=== PATIENT | female | born 1990 | race Caucasian/White ===

== ENCOUNTER 2018-02-05 09:08 | Emergency (ER) | payer OTHER ==
--- NOTE | 2018-02-05 09:33 | ED ---
General Adult HPI - General Chief complaint: Extremity Injury, Lower Stated complaint: fall, foot injury Time Seen by Provider: 02/05/18 09:20 Source: patient, RN notes reviewed Mode of arrival: ambulatory Limitations: no limitations - History of Present Illness Initial comments: Patient 28-year-old female presenting to the emergency room today with a chief complaint of an injury to the right ankle and foot that occurred yesterday. She states that she tripped on a curb causing it to roll and felt a pop. She states that she was trying to ice yesterday but was running around doing a lot of parents. Patient states pain is worse today with swelling. She states worse with ambulation and bearing weight. Patient denies any other injury or complaint. Patient denies any recent fever, chills, shortness of breath, chest pain, back pain, abdominal pain, nausea or vomiting, numbness or tingling, headaches or visual changes, or any other complaints. - Related Data Home Medications Medication Instructions Recorded Confirmed Ibuprofen [Motrin Ib] 600 mg PO Q6H PRN 02/05/18 02/05/18 Pregabalin [Lyrica] 150 mg PO BID 02/05/18 02/05/18 Previous Rx's Medication Instructions Recorded Ibuprofen [Motrin] 600 mg PO Q6HR PRN #40 day 02/05/18 Allergies Allergy/AdvReac Type Severity Reaction Status Date / Time No Known Allergies Allergy Verified 02/05/18 09:33 Review of Systems ROS Statement: Those systems with pertinent positive or pertinent negative responses have been documented in the HPI. ROS Other: All systems not noted in ROS Statement are negative. Past Medical History Past Medical History: Osteoarthritis (OA) Additional Past Medical History / Comment(s): right ovarian cyst History of Any Multi-Drug Resistant Organisms: None Reported Past Surgical History: Orthopedic Surgery, Tonsillectomy Additional Past Surgical History / Comment(s): wisdom teeth, LT ROTATOR CUFF REPAIR, INSERTED AND REMOVAL IUD, COLONOSCOPY Past Anesthesia/Blood Transfusion Reactions: No Reported Reaction Past Psychological History: Anxiety Smoking Status: Former smoker Past Alcohol Use History: None Reported Past Drug Use History: None Reported - Past Family History Mother Family Medical History: No Reported History General Exam - General Exam Comments Initial Comments: General: The patient is awake and alert, in no distress, and does not appear acutely ill. Neck: The neck is supple, there is no tenderness or JVD. Musculoskeletal: Patient does have moderate swelling over the right ankle and top the right foot. Patient shows limited range of motion with plantar and dorsiflexion due to pain. No tenderness to the right knee. No tenderness down into the digits the right foot. Patient does have tenderness over the first and second metatarsals. Locally tender over the lateral malleolus and in the lateral ligamentous areas. Sensations are intact. Pupils pulses 2+. Neurological: A&O x 3. CN II-XII intact, There are no obvious motor or sensory deficits. Coordination appears grossly intact. Speech is normal. Skin: Skin is warm and dry and no rashes or lesions are noted. Psychiatric: Normal mood and affect. Limitations: no limitations Course Vital Signs 02/05/18 09:10 Temperature 97.5 F L Pulse Rate 102 H Respiratory 18 Rate Blood Pressure 143/93 O2 Sat by Pulse 98 Oximetry Medical Decision Making - Medical Decision Making X-ray reviewed and negative for any acute fracture dislocation. Results were discussed with the patient. Patient will given Aircast splint here in the emergency room she is advised follow-up in 7-10 days for repeat x-rays if symptoms persist. Patient advised continue anti-inflammatories. We'll give Toradol shot prior to discharge. Disposition Clinical Impression: Ankle sprain Disposition: HOME SELF-CARE Condition: Good Instructions: Ankle Sprain (ED) Additional Instructions: Please continue to ice elevate the affected area at least 4 times a day for 20 minutes at a time. Please use Tylenol/ibuprofen for pain. Please follow-up in 7-10 days for repeat x-rays if symptoms persist. Please return to emergency room for any other concerns. Prescriptions: Ibuprofen [Motrin] 600 mg PO Q6HR PRN #40 day PRN Reason: Pain Is patient prescribed a controlled substance at d/c from ED?: No Referrals: Christopher Jorge MD [Primary Care Provider] - 1-2 days Time of Disposition: 10:13
--- NOTE | 2018-02-05 09:52 | XR ---
EXAMINATION TYPE: XR ankle complete RT DATE OF EXAM: 02/05/2018 COMPARISON: NONE HISTORY: Pain FINDINGS: Three views of the ankle demonstrate the ankle mortise to be intact and symmetric. The joint spaces are preserved. The osseous structures are intact. Soft tissue swelling laterally. IMPRESSION: 1. No definite acute fracture or dislocation, if symptoms persist follow-up study in 7 to 10 days wou ld be suggested.
--- NOTE | 2018-02-05 09:54 | XR ---
EXAMINATION TYPE: XR foot complete RT DATE OF EXAM: 02/05/2018 COMPARISON: NONE HISTORY: Pain TECHNIQUE: Three views are submitted. FINDINGS: The osseous structures are intact. There is no acute fracture or dislocation. Joint spaces are p reserved. Hammertoe deformities noted. IMPRESSION: 1. No acute fracture or dislocation. If symptoms persist, follow-up exam in 7 to 10 days could be ob tained.
[2018-02-05] MEDS ORDERED: KETOROLAC 60 MG/2 ML VIAL IM STA (10:10)
[2018-02-05 10:41] VITALS: BP 131/70; PULSE 98; RESP 16; TEMP 97.8
== END 2018-02-05 10:39 | disposition home or self-care (01) ==
LOC: EC 09:08
DX: S93.401A Sprain of unspecified ligament of right ankle, initial encounter (principal); F41.9 Anxiety disorder, unspecified; Z87.891 Personal history of nicotine dependence; Z79.899 Other long term (current) drug therapy; W22.8XXA Striking against or struck by other objects, initial encounter
CPT/HCPCS: 73610; 73630; 99283; 96372; J1885

== ENCOUNTER 2018-03-31 04:28 | Emergency (ER) | payer OTHER ==
--- NOTE | 2018-03-31 05:36 | ED ---
Wound/Laceration HPI - General Chief Complaint: Wound/Laceration Stated Complaint: Foot laceration Time Seen by Provider: 03/31/18 05:15 Source: patient Mode of arrival: ambulatory Limitations: no limitations - History of Present Illness Initial Comments: Is a 28-year-old female who presents emergency department for a leg laceration. The patient reportedly slammed a glass door which shattered and a piece of glass cut her leg. The patient denies any major pain. She states that her last tetanus shot was within the last 5 years. She denies any other injuries. - Related Data Home Medications Medication Instructions Recorded Confirmed Ibuprofen [Motrin Ib] 600 mg PO Q6H PRN 02/05/18 02/05/18 Pregabalin [Lyrica] 150 mg PO BID 02/05/18 02/05/18 Previous Rx's Medication Instructions Recorded Ibuprofen [Motrin] 600 mg PO Q6HR PRN #40 day 02/05/18 Allergies Allergy/AdvReac Type Severity Reaction Status Date / Time No Known Allergies Allergy Verified 03/31/18 04:47 Review of Systems ROS Statement: Those systems with pertinent positive or pertinent negative responses have been documented in the HPI. ROS Other: All systems not noted in ROS Statement are negative. Past Medical History Past Medical History: Osteoarthritis (OA) Additional Past Medical History / Comment(s): right ovarian cyst History of Any Multi-Drug Resistant Organisms: None Reported Past Surgical History: Orthopedic Surgery, Tonsillectomy Additional Past Surgical History / Comment(s): wisdom teeth, LT ROTATOR CUFF REPAIR, INSERTED AND REMOVAL IUD, COLONOSCOPY Past Anesthesia/Blood Transfusion Reactions: No Reported Reaction Past Psychological History: Anxiety Smoking Status: Former smoker Past Alcohol Use History: None Reported Past Drug Use History: None Reported - Past Family History Mother Family Medical History: No Reported History General Exam - General Exam Comments Initial Comments: Constitutional: Awake alert Appears comfortable Head: Normocephalic atraumatic Eyes: no conjunctival injection No scleral icterus EOMI Neck: No JVD Supple Heart: Regular rate rhythm normal S1-S2 no murmurs Lungs: Clear to auscultation bilaterally No wheezing No rales Abdomen: Soft nondistended nontender Extremities: Non edematous DP pulses intact Radial pulses intact, there is a laceration to the medial aspect of the left calf anteriorly. It is approximately 4-5 cm in length and appears to be just through the skin layer and down to the subcutaneous fat. Bleeding is well controlled Neuro: A&Ox3 No focal neurologic deficits Psych: Appropriate mood and affect Limitations: no limitations Course Vital Signs 03/31/18 04:43 Temperature 97.4 F L Pulse Rate 110 H Respiratory 20 Rate Blood Pressure 141/87 O2 Sat by Pulse 94 L Oximetry Procedures - Laceration Laceration #1 Consent Obtained: verbal consent Indication: laceration Site: lower extremity Size (cm): 4 Description: linear Depth: simple, single layer Anesthetic Used: lidocaine 1% Anesthesia Technique: local infiltration Amount (mls): 4 Pre-repair: wound explored, irrigated extensively, deep structures intact Type of Sutures: nylon Size of Sutures: 4-0 Number of Sutures: 11 Technique: simple, interrupted Patient Tolerated Procedure: no complications Medical Decision Making - Medical Decision Making Is a 28-year-old female who presents emergency report for a laceration on her left leg. Laceration was explored and irrigated except extensively. No foreign bodies or glass were found. The laceration was repaired. Please see the procedure note for details. The patient was discharged home. Instructed to using tobacco ointment twice a day and monitor for signs of infection. She needs to have the sutures removed in 10-14 days. This was also discussed with her fianc at bedside. All questions were answered. Disposition Clinical Impression: Laceration Disposition: HOME SELF-CARE Condition: Stable Instructions: Laceration (ED) Additional Instructions: Sutures need to come out in 10=14 days. Use antibiotic ointment on it twice a day. Return for redness, increased pain, or pus drainage Is patient prescribed a controlled substance at d/c from ED?: No Referrals: Christopher Jorge MD [Primary Care Provider] - 1-2 days
[2018-03-31] MEDS ORDERED: LIDOCAINE 1% INJ 10MG/ML (20 ML MDV) SQ ONE (06:39)
[2018-03-31 08:17] VITALS: BP 109/79; PULSE 60; RESP 16; TEMP 98.6
== END 2018-03-31 07:35 | disposition home or self-care (01) ==
LOC: EC 04:28
DX: S81.812A Laceration without foreign body, left lower leg, initial encounter (principal); Z79.899 Other long term (current) drug therapy; Z87.891 Personal history of nicotine dependence; W25.XXXA Contact with sharp glass, initial encounter
CPT/HCPCS: 99282; 12002; J2001

== ENCOUNTER 2018-05-24 06:52 | Emergency (ER) | payer OTHER ==
[2018-05-24 07:06] VITALS: RESP 18; TEMP 97.9
--- NOTE | 2018-05-24 07:18 | ED ---
General Adult HPI <Abdullahi Armenta - Last Filed: 05/24/18 10:14> - General Source: patient, RN notes reviewed Mode of arrival: ambulatory Limitations: no limitations <Drew Pierce - Last Filed: 05/24/18 11:03> - General Chief complaint: Extremity Injury, Upper Stated complaint: Shoulder Pain Time Seen by Provider: 05/24/18 07:07 - History of Present Illness Initial comments: 28-year-old female with chronic shoulder dislocations presents to the emergency department for a chief complaint of right shoulder dislocation x 2 hours. Patient states she slept with her arms above her head which causes her shoulder to dislocate. Patient states this has happened many times before. She is aware she needs surgery and is trying to schedule this. Patient has already had reconstructive surgery on the left shoulder for the same problem. Patient has no other complaints at this time including shortness of breath, chest pain, abdominal pain, nausea or vomiting, headache, or visual changes. (Drew Pierce) - Related Data Home Medications Medication Instructions Recorded Confirmed Ibuprofen [Motrin Ib] 600 mg PO Q6H PRN 02/05/18 02/05/18 Pregabalin [Lyrica] 150 mg PO BID 02/05/18 02/05/18 Previous Rx's Medication Instructions Recorded Ibuprofen [Motrin] 600 mg PO Q6HR PRN #40 day 02/05/18 Allergies Allergy/AdvReac Type Severity Reaction Status Date / Time No Known Allergies Allergy Verified 03/31/18 04:47 Review of Systems ROS Other: All systems not noted in ROS Statement are negative. <Abdullahi Armenta - Last Filed: 05/24/18 10:14> ROS Other: All systems not noted in ROS Statement are negative. <Drew Pierce - Last Filed: 05/24/18 11:03> ROS Statement: Those systems with pertinent positive or pertinent negative responses have been documented in the HPI. Past Medical History Past Medical History: Osteoarthritis (OA) Additional Past Medical History / Comment(s): right ovarian cyst, prior dislocations to right shoulder x13 History of Any Multi-Drug Resistant Organisms: None Reported Past Surgical History: Orthopedic Surgery, Tonsillectomy Additional Past Surgical History / Comment(s): wisdom teeth, LT ROTATOR CUFF REPAIR, INSERTED AND REMOVAL IUD, COLONOSCOPY Past Anesthesia/Blood Transfusion Reactions: No Reported Reaction Past Psychological History: Anxiety Smoking Status: Former smoker Past Alcohol Use History: None Reported Past Drug Use History: None Reported - Past Family History Mother Family Medical History: No Reported History <Drew Pierce - Last Filed: 05/24/18 11:03> General Exam Limitations: no limitations General appearance: anxious Head exam: Present: atraumatic, normocephalic, normal inspection Eye exam: Present: normal appearance, PERRL, EOMI. Absent: scleral icterus, conjunctival injection, periorbital swelling ENT exam: Present: normal exam, mucous membranes moist Neck exam: Present: normal inspection. Absent: tenderness, meningismus, lymphadenopathy Respiratory exam: Present: normal lung sounds bilaterally. Absent: respiratory distress, wheezes, rales, rhonchi, stridor Cardiovascular Exam: Present: regular rate, normal rhythm, normal heart sounds. Absent: systolic murmur, diastolic murmur, rubs, gallop, clicks Extremities exam: Present: normal capillary refill (Capillary refill less than 2 seconds and radial pulse 2+ in the right upper extremity), other (deformity noted). Absent: full ROM (Unable to move right shoulder) <Drew Pierce - Last Filed: 05/24/18 11:03> Course <Abdullahi Armenta - Last Filed: 05/24/18 10:14> <Drew Pierce - Last Filed: 05/24/18 11:03> Vital Signs 05/24/18 05/24/18 05/24/18 07:02 09:30 09:45 Temperature 97.9 F Pulse Rate 74 71 61 Respiratory 18 18 18 Rate Blood Pressure 131/86 141/96 136/100 O2 Sat by Pulse 100 99 100 Oximetry 05/24/18 05/24/18 05/24/18 10:00 10:15 10:21 Temperature Pulse Rate 63 84 75 Respiratory 18 18 18 Rate Blood Pressure 128/79 114/81 114/81 O2 Sat by Pulse 100 100 99 Oximetry - Reevaluation(s) Reevaluation #1: 05/24/18 11:02 Did attempt to reduce shoulder without sedation initially after morphine administered. This is unsuccessful. It then took some time to have respiratory come down due to having multiple other cases to finish first. Reduction was started as soon as possible. (Drew Pierce) Procedures - Orthopedic Joint Reduction Joint #1 Consent Obtained: verbal consent Side: right Joint Reduction Location: shoulder Analgesia: procedural sedation Shoulder Technique Used (if applicable): traction/counter-traction Post Reduction X-Ray Obtained: Yes Post Reduction X-Ray Results: reduced Splint Applied: Yes Patient Tolerated Procedure: well - Procedural Sedation Procedural Sedation Start Time: 10:05 Procedural Sedation Stop Time: 10:35 Indications: fracture/dislocation reduction ASA Class: I Preparation: pulverizer feeder applied, pulse oximeter, capnometry used, supplemental O2 applied IV Etomidate Dose (mgs): 10 Complications: none Patient Tolerated Procedure: well <Abdullahi Armenta - Last Filed: 05/24/18 10:14> Medical Decision Making <Abdullahi Armenta - Last Filed: 05/24/18 10:14> <Drew Pierce - Last Filed: 05/24/18 11:03> - Medical Decision Making 28-year-old female presents for right shoulder dislocation. This has been recurrent. Initial x-ray showed an anterior shoulder dislocation. Reduction was performed with sedation by Dr. Armenta. No complications. X-ray postreduction shows a successful reduction of the right shoulder. Neurovascular intact. Immobilizer applied. Patient will follow-up with orthopedics. On discharge patient is alert and oriented, drinking water. She is ready to go home. Will return here if she has any worsening symptoms. ( Drew Pierce) Disposition <Abdullahi Armenta - Last Filed: 05/24/18 10:14> Is patient prescribed a controlled substance at d/c from ED?: No Time of Disposition: 11:01 <Drew Pierce - Last Filed: 05/24/18 11:03> Clinical Impression: Shoulder dislocation Disposition: HOME SELF-CARE Condition: Good Instructions (If sedation given, give patient instructions): Shoulder Dislocation (ED) Additional Instructions: Please follow up with primary care in 1-2 days. Follow-up with orthopedics for possible surgery. Please return here to the emergency department if you have any worsening symptoms. Referrals: Christopher Jorge MD [Primary Care Provider] - 1-2 days Chet Starr DO [Medical Doctor] - 1-2 days
--- NOTE | 2018-05-24 07:24 | XR ---
EXAMINATION TYPE: XR shoulder limited RT DATE OF EXAM: 05/24/2018 COMPARISON: 12/07/2013 HISTORY: Pain TECHNIQUE: Shoulder examined in 2 views FINDINGS: Humeral head is anterior and inferior to the adenoid. The acromio-clavicular junction is normal. No acute fractures are evident. IMPRESSION: 1. Anterior humeral head dislocation.
[2018-05-24] MEDS ORDERED: MORPHINE SULFATE 4 MG/ML SYRINGE IM STA (07:36)
[2018-05-24] MEDS ORDERED: ETOMIDATE 2 MG/ML 10 ML VIAL IVP STA (08:05)
[2018-05-24] MEDS ORDERED: SODIUM CHLORIDE 0.9% 500 ML 500 ML IV ONE (10:26)
--- NOTE | 2018-05-24 10:35 | XR ---
EXAMINATION TYPE: XR shoulder limited RT DATE OF EXAM: 05/24/2018 COMPARISON: 05/24/2018 earlier exam HISTORY: Dislocation TECHNIQUE: Single AP view right shoulder FINDINGS: There is been reduction of the shoulder dislocation. Humeral head appears to articulate wit h the glenoid in this projection. Acromioclavicular junction is intact. No interval fractures are lynda ntified. IMPRESSION: 1. Reduction of previous dislocation right shoulder
[2018-05-24 11:03] VITALS: BP 117/71; PULSE 67
== END 2018-05-24 11:12 | disposition home or self-care (01) ==
LOC: EC 06:52
DX: S43.014A Anterior dislocation of right humerus, initial encounter (principal); Z79.899 Other long term (current) drug therapy; Z87.891 Personal history of nicotine dependence; X50.9XXA Other and unspecified overexertion or strenuous movements or postures, initial encounter
CPT/HCPCS: 99283; 23650; 99152; 99153; 96360; 96372; 73020; J2270

== ENCOUNTER 2019-01-14 12:24 | Emergency (ER) | payer OTHER ==
[2019-01-14] MEDS ORDERED: IBUPROFEN IV 600 MG in SODIUM CHLORIDE 0.9% 250 ML IV STA (13:20)
[2019-01-14] MEDS ORDERED: ACETAMINOPHEN TAB 500 MG TAB PO STA (13:20)
[2019-01-14 14:08] LABS: Basophils % (A) 0 %; Eosinophils % (A) 0 %; HCT 39.4 % (34.0-46.0); HGB 12.8 gm/dL (11.4-16.0); Lymphocytes # (A) 0.5 k/uL (1.0-4.8); Lymphocytes % (A) 7 %; MCH 29.3 pg (25.0-35.0); MCHC 32.6 g/dL (31.0-37.0); MCV 89.9 fL (80.0-100.0); Mean Platelet Volume 7.5; Monocytes # (A) 0.3 k/uL (0-1.0); Monocytes % (A) 3 %; Neutrophils # (A) 7.2 k/uL (1.3-7.7); Neutrophils % (A) 89 %; Platelet Count 182 k/uL (150-450); RBC 4.38 m/uL (3.80-5.40); RDW 13.2 % (11.5-15.5); WBC 8.1 k/uL (3.8-10.6)
[2019-01-14 14:19] LABS: ALT 21 U/L (9-52); AST 18 U/L (14-36); African American GFR (CKD) >90 (>60 ml/min/1.73 sqM); Albumin 4.2 g/dL (3.5-5.0); Alkaline Phosphatase 53 U/L (38-126); Anion Gap 10 mmol/L; Blood Urea Nitrogen 10 mg/dL (7-17); Calcium 9.3 mg/dL (8.4-10.2); Carbon Dioxide 22 mmol/L (22-30); Chloride 103 mmol/L (98-107); Glucose 91 mg/dL (74-99); INR 0.9 (<1.2); Partial Thromboplastin Time 25.7 sec (22.0-30.0); Potassium 4.1 mmol/L (3.5-5.1); Prothrombin Time 9.8 sec (9.0-12.0); Sodium 135 mmol/L (137-145); Total Bilirubin 1.1 mg/dL (0.2-1.3); Total Protein 7.2 g/dL (6.3-8.2)
[2019-01-14 14:23] LABS: Appearance,Urine Clear (Clear); Bacteria,Urine Rare /hpf; Bilirubin,Urine Negative (Negative); Blood,Urine Moderate (Negative); Color,Urine Yellow; Glucose,Urine (UA) Negative (Negative); Ketones,Urine Negative (Negative); Leukocyte Esterase,Urine Small (Negative); Mucus,Urine Occasional /hpf; Nitrite,Urine Negative (Negative); PH, Urine 6.5 (5.0-8.0); Protein,Urine Trace (Negative); RBC,Urine 9 /hpf (0-5); Specific Gravity,Urine 1.026 (1.001-1.035); Squamous Epithelial Cell,Urine 7 /hpf (0-4); Urobilinogen,Urine <2.0 mg/dL (<2.0); WBC,Urine 2 /hpf (0-5)
--- NOTE | 2019-01-14 14:23 | ED ---
Fever HPI - General Chief Complaint: Fever Stated Complaint: Fever, Chest pain,SOB Time Seen by Provider: 01/14/19 12:53 Source: patient, RN notes reviewed, old records reviewed Mode of arrival: ambulatory Limitations: no limitations - History of Present Illness Initial Comments: Patient is a 21-year-old female, presents emergency department today with chest pain, shortness of breath, and left lower abdominal pain, fevers 4 days after elective D&C procedure. Patient is a female. Patient states that she accidentally became , and was 5 weeks in gestation and had an elective surgical . Patient reports that this was done in [facility]. Patient reports that she's had some lower abdominal pain but denies any severe vaginal bleeding or noted discharge. She denies any history of blood clots. - Related Data Home Medications Medication Instructions Recorded Confirmed Ibuprofen [Motrin Ib] 600 mg PO Q6H PRN 02/05/18 02/05/18 Pregabalin [Lyrica] 150 mg PO BID 02/05/18 02/05/18 Previous Rx's Medication Instructions Recorded Ibuprofen [Motrin] 600 mg PO Q6HR PRN #40 day 02/05/18 Acetaminophen-Codeine 300-30mg 1 tab PO Q4H PRN 3 Days #18 tablet 01/14/19 [Tylenol w/codeine #3] Doxycycline [Vibramycin] 100 mg PO BID #28 capsule 01/14/19 metroNIDAZOLE [Flagyl] 500 mg PO BID #28 tab 01/14/19 Allergies Allergy/AdvReac Type Severity Reaction Status Date / Time No Known Allergies Allergy Verified 03/31/18 04:47 Review of Systems ROS Statement: Those systems with pertinent positive or pertinent negative responses have been documented in the HPI. ROS Other: All systems not noted in ROS Statement are negative. Past Medical History Past Medical History: Osteoarthritis (OA) Additional Past Medical History / Comment(s): right ovarian cyst, prior dislocations to right shoulder x13 History of Any Multi-Drug Resistant Organisms: None Reported Past Surgical History: Orthopedic Surgery, Tonsillectomy Additional Past Surgical History / Comment(s): wisdom teeth, LT ROTATOR CUFF REPAIR, INSERTED AND REMOVAL IUD, COLONOSCOPY, "surgical " Past Anesthesia/Blood Transfusion Reactions: No Reported Reaction Past Psychological History: Anxiety Smoking Status: Former smoker Past Alcohol Use History: None Reported Past Drug Use History: None Reported - Past Family History Mother Family Medical History: No Reported History General Exam - General Exam Comments Initial Comments: 21-year-old female. Alert and oriented. No significant distress. Limitations: no limitations General appearance: alert, in no apparent distress Head exam: Present: atraumatic, normocephalic, normal inspection Eye exam: Present: normal appearance, PERRL, EOMI. Absent: scleral icterus, conjunctival injection, periorbital swelling ENT exam: Present: normal exam, mucous membranes moist Neck exam: Present: normal inspection. Absent: tenderness, meningismus, lymphadenopathy Respiratory exam: Present: normal lung sounds bilaterally. Absent: respiratory distress, wheezes, rales, rhonchi, stridor Cardiovascular Exam: Present: regular rate, normal rhythm, normal heart sounds. Absent: systolic murmur, diastolic murmur, rubs, gallop, clicks GI/Abdominal exam: Present: soft, tenderness (Suprapubic tenderness), normal bowel sounds. Absent: distended, guarding, rebound, rigid External exam: Present: normal external exam Speculum exam: Present: normal speculum exam, vaginal discharge, vaginal bleeding (Left adnexal tenderness.) By manual exam: Present: normal by manual exam, cervical motion tenderness, adnexal mass, uterine enlargement. Absent: adnexal tenderness Extremities exam: Present: normal inspection, full ROM, normal capillary refill. Absent: tenderness, pedal edema, joint swelling, calf tenderness Back exam: Present: normal inspection Neurological exam: Present: alert, oriented X3, CN II-XII intact Psychiatric exam: Present: normal affect, normal mood Course Vital Signs 01/14/19 01/14/19 01/14/19 12:39 14:30 14:59 Temperature 100 F H Pulse Rate 121 H 94 90 Respiratory 18 16 18 Rate Blood Pressure 144/93 139/86 131/87 O2 Sat by Pulse 100 98 100 Oximetry 01/14/19 01/14/19 15:46 16:47 Temperature 100.6 F H Pulse Rate 86 78 Respiratory 18 16 Rate Blood Pressure 127/74 113/68 O2 Sat by Pulse 99 100 Oximetry Medical Decision Making - Medical Decision Making This is a 29-year-old female, 4 days post elective with D&C. She presents today for left-sided abdominal pain, fevers, did complain of some cough and shortness of breath. This time Patient had full evaluation for a CT injured chest for PE which was negative. CT on pelvis shows bilateral ovarian cysts recommended further evaluation with ultrasound. Ultrasound was completed and shows some cysts but no signs of abscess or intake and endometrium or other inflammatory process. Blood work was otherwise unremarkable. Patient's urinalysis did show mild infection. On pelvic exam she did have bleeding, but in some left adnexal tenderness. I discussed this with Dr. Cline and discussed putting the Patient on antibiotics for concern for possible PID related to her D&C. Patient was offered admission and states she preferred to go home at this time. I did discuss we can discharge her with a short course of antibiotics and pain medicine and she needs a prompt follow-up with her [employer] in the morning. Patient is agreeable to this. Discussed strict return parameters as well. - Lab Data Result diagrams: 01/14/19 13:35 01/14/19 13:35 Lab Results 01/14/19 01/14/19 01/14/19 Range/Units 13:35 13:35 13:35 WBC 8.1 (3.8-10.6) k/uL RBC 4.38 (3.80-5.40) m/uL Hgb 12.8 (11.4-16.0) gm/dL Hct 39.4 (34.0-46.0) % MCV 89.9 (80.0-100.0) fL MCH 29.3 (25.0-35.0) pg MCHC 32.6 (31.0-37.0) g/dL RDW 13.2 (11.5-15.5) % Plt Count 182 (150-450) k/uL Neutrophils % 89 % Lymphocytes % 7 % Monocytes % 3 % Eosinophils % 0 % Basophils % 0 % Neutrophils # 7.2 (1.3-7.7) k/uL Lymphocytes # 0.5 L (1.0-4.8) k/uL Monocytes # 0.3 (0-1.0) k/uL Eosinophils # 0.0 (0-0.7) k/uL Basophils # 0.0 (0-0.2) k/uL PT (9.0-12.0) sec INR (<1.2) APTT (22.0-30.0) sec Sodium 135 L (137-145) mmol/L Potassium 4.1 (3.5-5.1) mmol/L Chloride 103 (98-107) mmol/L Carbon Dioxide 22 (22-30) mmol/L Anion Gap 10 mmol/L BUN 10 (7-17) mg/dL Creatinine 0.73 (0.52-1.04) mg/dL Est GFR (CKD-EPI)AfAm >90 (>60 ml/min/1.73 sqM) Est GFR (CKD-EPI)NonAf >90 (>60 ml/min/1.73 sqM) Glucose 91 (74-99) mg/dL Plasma Lactic Acid Oscar (0.7-2.0) mmol/L Calcium 9.3 (8.4-10.2) mg/dL Total Bilirubin 1.1 (0.2-1.3) mg/dL AST 18 (14-36) U/L ALT 21 (9-52) U/L Alkaline Phosphatase 53 (38-126) U/L Troponin I (0.000-0.034) ng/mL NT-Pro-B Natriuret Pep pg/mL Total Protein 7.2 (6.3-8.2) g/dL Albumin 4.2 (3.5-5.0) g/dL Urine Color Urine Appearance (Clear) Urine pH (5.0-8.0) Ur Specific [place] (1.001-1.035) Urine Protein (Negative) Urine Glucose (UA) (Negative) Urine Ketones (Negative) Urine Blood (Negative) Urine Nitrite (Negative) Urine Bilirubin (Negative) Urine Urobilinogen (<2.0) mg/dL Ur Leukocyte Esterase (Negative) Urine RBC (0-5) /hpf Urine WBC (0-5) /hpf Ur Squamous Epith Cells (0-4) /hpf Urine Bacteria (None) /hpf Urine Mucus (None) /hpf Influenza Type A RNA Not Detected (Not Detectd) Influenza Type B (PCR) Not Detected (Not Detectd) Trichomonas Ag (Rapid) (Negative) Blood Type Blood Type Recheck Bld Type Recheck Status Antibody Screen Spec Expiration Date 01/14/19 01/14/19 01/14/19 Range/Units 13:35 13:35 13:35 WBC (3.8-10.6) k/uL RBC (3.80-5.40) m/uL Hgb (11.4-16.0) gm/dL Hct (34.0-46.0) % MCV (80.0-100.0) fL MCH (25.0-35.0) pg MCHC (31.0-37.0) g/dL RDW (11.5-15.5) % Plt Count (150-450) k/uL Neutrophils % % Lymphocytes % % Monocytes % % Eosinophils % % Basophils % % Neutrophils # (1.3-7.7) k/uL Lymphocytes # (1.0-4.8) k/uL Monocytes # (0-1.0) k/uL Eosinophils # (0-0.7) k/uL Basophils # (0-0.2) k/uL PT 9.8 (9.0-12.0) sec INR 0.9 (<1.2) APTT 25.7 (22.0-30.0) sec Sodium (137-145) mmol/L Potassium (3.5-5.1) mmol/L Chloride (98-107) mmol/L Carbon Dioxide (22-30) mmol/L Anion Gap mmol/L BUN (7-17) mg/dL Creatinine (0.52-1.04) mg/dL Est GFR (CKD-EPI)AfAm (>60 ml/min/1.73 sqM) Est GFR (CKD-EPI)NonAf (>60 ml/min/1.73 sqM) Glucose (74-99) mg/dL Plasma Lactic Acid Oscar 1.0 (0.7-2.0) mmol/L Calcium (8.4-10.2) mg/dL Total Bilirubin (0.2-1.3) mg/dL AST (14-36) U/L ALT (9-52) U/L Alkaline Phosphatase (38-126) U/L Troponin I (0.000-0.034) ng/mL NT-Pro-B Natriuret Pep pg/mL Total Protein (6.3-8.2) g/dL Albumin (3.5-5.0) g/dL Urine Color Yellow Urine Appearance Clear (Clear) Urine pH 6.5 (5.0-8.0) Ur Specific [place] 1.026 (1.001-1.035) Urine Protein Trace H (Negative) Urine Glucose (UA) Negative (Negative) Urine Ketones Negative (Negative) Urine Blood Moderate H (Negative) Urine Nitrite Negative (Negative) Urine Bilirubin Negative (Negative) Urine Urobilinogen <2.0 (<2.0) mg/dL Ur Leukocyte Esterase Small H (Negative) Urine RBC 9 H (0-5) /hpf Urine WBC 2 (0-5) /hpf Ur Squamous Epith Cells 7 H (0-4) /hpf Urine Bacteria Rare H (None) /hpf Urine Mucus Occasional H (None) /hpf Influenza Type A RNA (Not Detectd) Influenza Type B (PCR) (Not Detectd) Trichomonas Ag (Rapid) (Negative) Blood Type Blood Type Recheck Bld Type Recheck Status Antibody Screen Spec Expiration Date 01/14/19 01/14/19 01/14/19 Range/Units 13:35 13:35 13:35 WBC (3.8-10.6) k/uL RBC (3.80-5.40) m/uL Hgb (11.4-16.0) gm/dL Hct (34.0-46.0) % MCV (80.0-100.0) fL MCH (25.0-35.0) pg MCHC (31.0-37.0) g/dL RDW (11.5-15.5) % Plt Count (150-450) k/uL Neutrophils % % Lymphocytes % % Monocytes % % Eosinophils % % Basophils % % Neutrophils # (1.3-7.7) k/uL Lymphocytes # (1.0-4.8) k/uL Monocytes # (0-1.0) k/uL Eosinophils # (0-0.7) k/uL Basophils # (0-0.2) k/uL PT (9.0-12.0) sec INR (<1.2) APTT (22.0-30.0) sec Sodium (137-145) mmol/L Potassium (3.5-5.1) mmol/L Chloride (98-107) mmol/L Carbon Dioxide (22-30) mmol/L Anion Gap mmol/L BUN (7-17) mg/dL Creatinine (0.52-1.04) mg/dL Est GFR (CKD-EPI)AfAm (>60 ml/min/1.73 sqM) Est GFR (CKD-EPI)NonAf (>60 ml/min/1.73 sqM) Glucose (74-99) mg/dL Plasma Lactic Acid Oscar (0.7-2.0) mmol/L Calcium (8.4-10.2) mg/dL Total Bilirubin (0.2-1.3) mg/dL AST (14-36) U/L ALT (9-52) U/L Alkaline Phosphatase (38-126) U/L Troponin I <0.012 (0.000-0.034) ng/mL NT-Pro-B Natriuret Pep 85 pg/mL Total Protein (6.3-8.2) g/dL Albumin (3.5-5.0) g/dL Urine Color Urine Appearance (Clear) Urine pH (5.0-8.0) Ur Specific [place] (1.001-1.035) Urine Protein (Negative) Urine Glucose (UA) (Negative) Urine Ketones (Negative) Urine Blood (Negative) Urine Nitrite (Negative) Urine Bilirubin (Negative) Urine Urobilinogen (<2.0) mg/dL Ur Leukocyte Esterase (Negative) Urine RBC (0-5) /hpf Urine WBC (0-5) /hpf Ur Squamous Epith Cells (0-4) /hpf Urine Bacteria (None) /hpf Urine Mucus (None) /hpf Influenza Type A RNA (Not Detectd) Influenza Type B (PCR) (Not Detectd) Trichomonas Ag (Rapid) (Negative) Blood Type O Positive Blood Type Recheck O Pos Bld Type Recheck Status No Antibody Screen NEGATIVE Spec Expiration Date 01/17/2019 - 6204 01/14/19 Range/Units 15:30 WBC (3.8-10.6) k/uL RBC (3.80-5.40) m/uL Hgb (11.4-16.0) gm/dL Hct (34.0-46.0) % MCV (80.0-100.0) fL MCH (25.0-35.0) pg MCHC (31.0-37.0) g/dL RDW (11.5-15.5) % Plt Count (150-450) k/uL Neutrophils % % Lymphocytes % % Monocytes % % Eosinophils % % Basophils % % Neutrophils # (1.3-7.7) k/uL Lymphocytes # (1.0-4.8) k/uL Monocytes # (0-1.0) k/uL Eosinophils # (0-0.7) k/uL Basophils # (0-0.2) k/uL PT (9.0-12.0) sec INR (<1.2) APTT (22.0-30.0) sec Sodium (137-145) mmol/L Potassium (3.5-5.1) mmol/L Chloride (98-107) mmol/L Carbon Dioxide (22-30) mmol/L Anion Gap mmol/L BUN (7-17) mg/dL Creatinine (0.52-1.04) mg/dL Est GFR (CKD-EPI)AfAm (>60 ml/min/1.73 sqM) Est GFR (CKD-EPI)NonAf (>60 ml/min/1.73 sqM) Glucose (74-99) mg/dL Plasma Lactic Acid Oscar (0.7-2.0) mmol/L Calcium (8.4-10.2) mg/dL Total Bilirubin (0.2-1.3) mg/dL AST (14-36) U/L ALT (9-52) U/L Alkaline Phosphatase (38-126) U/L Troponin I (0.000-0.034) ng/mL NT-Pro-B Natriuret Pep pg/mL Total Protein (6.3-8.2) g/dL Albumin (3.5-5.0) g/dL Urine Color Urine Appearance (Clear) Urine pH (5.0-8.0) Ur Specific [place] (1.001-1.035) Urine Protein (Negative) Urine Glucose (UA) (Negative) Urine Ketones (Negative) Urine Blood (Negative) Urine Nitrite (Negative) Urine Bilirubin (Negative) Urine Urobilinogen (<2.0) mg/dL Ur Leukocyte Esterase (Negative) Urine RBC (0-5) /hpf Urine WBC (0-5) /hpf Ur Squamous Epith Cells (0-4) /hpf Urine Bacteria (None) /hpf Urine Mucus (None) /hpf Influenza Type A RNA (Not Detectd) Influenza Type B (PCR) (Not Detectd) Trichomonas Ag (Rapid) Negative (Negative) Blood Type Blood Type Recheck Bld Type Recheck Status Antibody Screen Spec Expiration Date 01/14/19 14:22 EKG shows normal sinus rhythm, normal EKG. Ventricular rate of 99 bpm. WI interval is 144 ms. QS duration is 90 ms. QT QTc is 332/426 ms. - Radiology Data Radiology results: report reviewed CT shows bilateral ovarian cysts which could be from a pelvic ultrasound. No acute abnormality is identified for patient's pain. CT chest shows no acute pulmonary embolus. Some heterogenicity with thyroid follow-up thyroid ultrasound can be performed. Thickening 2 cm endometrium, no endometrial masses seen. Could relate hyperplasia. No evidence of ovarian torsion. No adnexal masses. Clearing of right ovarian cyst compared old exam. Disposition Clinical Impression: S/P dilation and curettage, Left lateral abdominal pain, Fever Disposition: HOME SELF-CARE Condition: Good Additional Instructions: Patient is to return if there is any worsening pain, fever, or other symptoms. Take antibiotics as prescribed. Follow-up tomorrow with your emt/paramedic. Return to the emergency department if any alarming signs or symptoms occur. Prescriptions: metroNIDAZOLE [Flagyl] 500 mg PO BID #28 tab Acetaminophen-Codeine 300-30mg [Tylenol w/codeine #3] 1 tab PO Q4H PRN 3 Days #18 tablet PRN Reason: Pain Doxycycline [Vibramycin] 100 mg PO BID #28 capsule Is patient prescribed a controlled substance at d/c from ED?: Yes If prescribed controlled substance>3 days was MAPS reviewed?: Prescribed <3 Days If opioid is for acute pain is fill amount 7 days or less?: Yes If Rx opioid, was Start Talking consent form obtained?: Yes Referrals: Christopher Jorge MD [Primary Care Provider] - 1-2 days Baltazar Mcknight MD [STAFF PHYSICIAN] - 1-2 days Time of Disposition: 17:06
[2019-01-14] MEDS: SODIUM CHLORIDE 0.9% 500 ML 500 ML IV SCH ×3 (14:48→17:25)
--- NOTE | 2019-01-14 15:02 | CT ---
CT CHEST FOR PULMONARY EMBOLISM. EXAMINATION TYPE: CT chest angio for PE DATE OF EXAM: 01/14/2019 INDICATION: Chest pain, shortness of breath post recent D&C CT DLP: 401.5 mGycm, Automated exposure control for dose reduction was used. CONTRAST: Patient injected with 100 mL of Isovue 370. COMPARISON: None TECHNIQUE: CT of the chest is performed on a spiral scan at 2 mm thick sections. Study is performed with intravenous contrast timed for evaluation for pulmonary embolism. This will limit additional po rtions of the evaluation. 3-D MIP images reconstructed by the technologist are reviewed on the compu ter in the coronal and sagittal planes. FINDINGS: No persistent filling defects are evident to suggest an acute pulmonary embolism. No mediastinal or hilar adenopathy enlarged by CT criteria is evident. The ascending aorta diameter at the level of the main pulmonary artery is 2.9 cm. The main pulmonary artery diameter at the bifur cation is 2.6 cm. Lung windows are clear. Limited CT section through the upper abdomen are unremarkable. There is a hypodensity within the infe rior right lobe of thyroid measuring 1.0 cm. Additional workup with ultrasound is recommended. IMPRESSIONS: 1. No acute pulmonary embolism. 2. Some heterogeneity within the thyroid. Follow-up thyroid ultrasound can be performed.
--- NOTE | 2019-01-14 15:05 | CT ---
EXAMINATION TYPE: CT abdomen pelvis w con DATE OF EXAM: 01/14/2019 COMPARISON: INDICATION: Chest pain, shortness of breath post recent D&C DLP: 794.4 mGycm, Automated exposure control for dose reduction was used. CONTRAST: 100 mL of Isovue 370. Study performed without Oral Contrast TECHNIQUE: Axial images were obtained from above the diaphragm to the pubic rami in the axial plane a t 5 mm thick sections. Reconstructed images are reviewed on the computer in the coronal plane. FINDINGS: Limited CT sections are obtained the lung bases. The lung bases are clear. CT ABDOMEN: Liver: Normal Spleen: Normal Pancreas: Normal Adrenal glands: The adrenal glands are normal. Gallbladder: Normal Kidneys: No masses are evident. No hydronephrosis is present. No cysts are present. Delayed images were obtained through the kidneys, which remain unremarkable. Aorta: Normal Inferior vena cava: Normal. CT PELVIS: Loops of bowel within the abdomen and pelvis are normal. Study is performed without oral contrast limiting bowel evaluation. Appendix: Normal as visualized. Urinary bladder: Normal. Genitourinary structures: Uterus is prominent. Patient reports a recent D&C. There is low density thr ough the endometrial canal within the uterus. Bilateral ovarian cysts are likely present measuring 2. 4 on the left and 2.7 on the right Osseous structures: No suspicious lytic or sclerotic lesions. IMPRESSIONS: 1. Bilateral ovarian cysts, this could be confirmed with pelvic ultrasound. 2. Acute abnormality is not identified.
[2019-01-14] MEDS ORDERED: MORPHINE SULFATE 4 MG/ML SYRINGE IVP STA (16:29)
[2019-01-14] MEDS ORDERED: AMPICILLIN-SULBACTAM 3 GM in SODIUM CHLORIDE 0.9% 100 ML IVPB STA (16:42)
--- NOTE | 2019-01-14 16:43 | US ---
EXAMINATION TYPE: US transvaginal DATE OF EXAM: 01/14/2019 COMPARISON: CT 2018, [place] 201409/27/2014 CLINICAL HISTORY: retained POC, vs TOA. Pelvic pain and bleeding x 1 day, D&C 3 days ago, 4, para 2, miscarriage 2 TECHNIQUE: Transvaginal ER exam only. EXAM MEASUREMENTS: Uterus: 10.7 x 5.9 x 6.8 cm Endometrial Stripe: 2.3 cm Right Ovary: 3.2 x 2.6 x 2.0 cm Left Ovary: 3.4 x 1.9 x 3.2 cm 1. Uterus: anteverted 2. Endometrium: thickened, heterogeneous, with some vascularity 3. Right Ovary: 1.7 x 1.7 x 1.4cm hypoechoic area 4. Left Ovary: 1.5 x 1.2 x 1.7cm hypoechoic area Spectral, color and waveform doppler imaging shows good arterial and venous flow within the ovaries ; there is no evidence for ovarian torsion. 5. Bilateral Adnexa: wnl 6. Posterior cul-de-sac: wnl IMPRESSION: Thickened 2 cm endometrium. No endometrial mass seen. This could relate to hyperplasia. N o evidence of ovarian torsion. No adnexal mass. There is clearing of right ovarian cyst compared to o ld exam.
[2019-01-14] MEDS ORDERED: DOXYCYCLINE 100 MG CAP PO STA (17:11)
[2019-01-14] MEDS ORDERED: metroNIDAZOLE 500 MG TAB PO STA (17:11)
[2019-01-14 18:39] VITALS: BP 121/78; PULSE 106; RESP 18; TEMP 100
[2019-01-17 14:13] LABS: C. trachomatis,PCR Negative (Neg,Equiv); Chlamydia trachomatis Source Vagina; N. gonorrhoeae,PCR Negative (Neg,Equiv); Neisseria Source Vagina
== END 2019-01-14 19:15 | disposition home or self-care (01) ==
LOC: EC 12:24
DX: R50.9 Fever, unspecified (principal); R10.32 Left lower quadrant pain; Z98.890 Other specified postprocedural states; N83.201 Unspecified ovarian cyst, right side; N83.202 Unspecified ovarian cyst, left side; N39.0 Urinary tract infection, site not specified; N93.9 Abnormal uterine and vaginal bleeding, unspecified; N83.8 Other noninflammatory disorders of ovary, fallopian tube and broad ligament; R05 Cough; R06.02 Shortness of breath; R07.9 Chest pain, unspecified; M19.90 Unspecified osteoarthritis, unspecified site; Z87.891 Personal history of nicotine dependence; Z79.1 Long term (current) use of non-steroidal anti-inflammatories (NSAID)
CPT/HCPCS: 36415; 93005; 86900; 86901; 83880; 80053; 83605; 85025; 84484; 85610; 85730; 86850; 81001; 87040; 87808; 87491; 87591; 87070; 87086; 87502; 93975; 76830; 71275; 74177; 99284; 96365; 96367; 96366; 96375; J2270; J0295; J1741; Q9967

== ENCOUNTER 2020-05-04 12:26 | Outpatient (CLI) | payer OTHER ==
[2020-05-04 13:24] LABS: Appearance,Urine Cloudy (Clear); Bacteria,Urine Rare /hpf; Bilirubin,Urine Negative (Negative); Blood,Urine Negative (Negative); Calcium Oxalate Crystals,Urine Few /hpf; Color,Urine Yellow; Glucose,Urine (UA) Negative (Negative); Hyaline Casts,Urine 1 /lpf (0-2); Ketones,Urine Negative (Negative); Leukocyte Esterase,Urine Moderate (Negative); Mucus,Urine Moderate /hpf; Nitrite,Urine Negative (Negative); Protein,Urine Trace (Negative); RBC,Urine 2 /hpf (0-5); Specific Gravity,Urine 1.022 (1.001-1.035); Squamous Epithelial Cell,Urine 16 /hpf (0-4); Urobilinogen,Urine <2.0 mg/dL (<2.0); WBC,Urine 4 /hpf (0-5)
[2020-05-04 14:09] VITALS: BP 148/92; PULSE 87; RESP 16; TEMP 97.2
--- NOTE | 2020-05-13 10:06 | P.MSEPDOC ---
Presenting Problems - Arrival Data Date of Arrival on Unit: 05/04/20 Time of Arrival on Unit: 12:28 Mode of Transport: Ambulatory - Complaint OB-Reason for Admission/Chief Complaint: Possible Onset of Labor Comment: Contrx since 10a Medical History - Information : 4 Para: 2 Term: 2 : 0 Abortions: Spontaneous or Elective: 1 Number of Living Children: 2 - Gestational Age Gestational Age by MARTI (wks/days): 37 Weeks and 5 Days - History Comment: Gestional HTN Review of Systems - Review of Systems Constitutional: No problems Breast: No problems ENT: No problems Cardiovascular: No problems Respiratory: No problems Gastrointestinal: No problems Genitourinary: Increased frequency Musculoskeletal: No problems Neurological: No problems Skin: No problems Vital Signs - Temperature Temperature: 97.2 F Temperature Source: Temporal Artery Scan - Pulse Right Sitting Brachial Pulse Rate: 87 Pulse Assessment Method: Pulse Oximetry - Respirations Respiratory Rate: 16 Oxygen Delivery Method: Room Air - Blood Pressure Right Arm Sitting Blood Pressure: 148/92 Blood Pressure Mean: 110 Blood Pressure Source: Automatic Cuff Medical Screen Scoring (Pre) - Cervical Exam Dilation: 1-3 cm = 1 Membranes: Intact - Uterine Contractions Frequency: > or = 36 weeks =2 Duration: > 40 seconds = 2 Intensity: N/A - Maternal Vital Signs Maternal Temperature: N/A Maternal Blood Pressure: N/A Signs of Preeclampsia: N/A Maternal Respirations: N/A - Maternal Trauma Maternal Trauma: N/A - Assessment - Baby A Baseline FHR: 145 Heart Rate - NICHD Category: Category I (Normal) = 0 NST: Reactive Position: N/A Station: N/A - Total Score - Baby A Total Score - Baby A: 5 - Total Score - Baby B Total Score - Baby B: 5 - Total Score - Baby C Total Score - Baby C: 5 - Level of Risk - Baby A Level of Risk - Baby A: Low (0-5) - Level of Risk - Baby B Level of Risk - Baby B: Low (0-5) - Level of Risk - Baby C Level of Risk - Baby C: Low (0-5) Physician Notification (Pre) - Physician Notified Physician Notified Date: 05/04/20 Physician Notified Time: 13:45 New Order Received: Yes - Notification Comment Comment: Gera matos\Dr. Mcknight, advsd , 37 5, c/o contrx since 10a, currently q2m, SVE /-3, no change after 1 hr, reactive NST, reviewed BPs, pt states comfortable going home. Order rec'd to d/c home, follow up as scheduled. Disposition - Disposition OB Disposition: Discharge to home, Written follow up instructions reviewed Discharge Date: 05/04/20 Discharge Time: 13:50 I agree with the RN Medical Screening Exam: Yes Physician's MSE Comment: I have neither seen nor examined the patient. Case reviewed; plan agreed upon as documented in EMR&OBIX.: Yes Diagnosis: RELATED CONDITIONS, UNSPECIFIED, THIRD TRIMESTER
== END 2020-05-04 13:50 | disposition home or self-care (01) ==
LOC: FBPOP 12:26
PROVIDERS: ATTEND Obstetrics & Gynecology
DX: O26.93 Pregnancy related conditions, unspecified, third trimester (principal); Z3A.37 37 weeks gestation of pregnancy
CPT/HCPCS: 59025; 81001; G0463; 99213

== ENCOUNTER 2020-05-05 23:25 | Outpatient (CLI) | payer OTHER ==
[2020-05-06 00:33] LABS: Basophils % (A) 0 %; Eosinophils # (A) 0.1 k/uL (0-0.7); Eosinophils % (A) 1 %; HCT 34.5 % (34.0-46.0); HGB 11.7 gm/dL (11.4-16.0); Lymphocytes # (A) 2.1 k/uL (1.0-4.8); Lymphocytes % (A) 18 %; MCH 29.2 pg (25.0-35.0); MCHC 34.1 g/dL (31.0-37.0); MCV 85.5 fL (80.0-100.0); Mean Platelet Volume 8.8; Monocytes # (A) 0.6 k/uL (0-1.0); Monocytes % (A) 5 %; Neutrophils # (A) 8.7 k/uL (1.3-7.7); Neutrophils % (A) 75 %; Platelet Count 216 k/uL (150-450); RBC 4.03 m/uL (3.80-5.40); RDW 14.6 % (11.5-15.5); WBC 11.6 k/uL (3.8-10.6)
[2020-05-06 00:43] LABS: Appearance,Urine Clear (Clear); Bacteria,Urine Rare /hpf; Bilirubin,Urine Negative (Negative); Blood,Urine Negative (Negative); Color,Urine Light Yellow; Glucose,Urine (UA) Negative (Negative); Ketones,Urine Negative (Negative); Leukocyte Esterase,Urine Small (Negative); Mucus,Urine Rare /hpf; Nitrite,Urine Negative (Negative); Protein,Urine Negative (Negative); RBC,Urine 1 /hpf (0-5); Specific Gravity,Urine 1.015 (1.001-1.035); Squamous Epithelial Cell,Urine 2 /hpf (0-4); Urobilinogen,Urine <2.0 mg/dL (<2.0); WBC,Urine 2 /hpf (0-5)
[2020-05-06 00:53] LABS: ALT 9 U/L (4-34); AST 16 U/L (14-36); African American GFR (CKD) >90 (>60 ml/min/1.73 sqM); Blood Urea Nitrogen 8 mg/dL (7-17); LDH 393 U/L (313-618); Non-African American GFR(CKD) >90 (>60 ml/min/1.73 sqM); Uric Acid 3.6 mg/dL (3.7-7.4)
[2020-05-06 00:56] LABS: Creatinine,Urine Random 70.8 mg/dL; Protein/Creatinine Ratio,Urine 0.24
[2020-05-06 01:26] LABS: INR 0.8 (<1.2); Partial Thromboplastin Time 22.4 sec (22.0-30.0); Prothrombin Time 9.4 sec (9.0-12.0)
[2020-05-06 02:56] VITALS: BP 124/75; PULSE 93; RESP 18; TEMP 96.4
--- NOTE | 2020-05-26 15:32 | P.MSEPDOC ---
Presenting Problems - Arrival Data Date of Arrival on Unit: 05/05/20 Time of Arrival on Unit: 23:25 Mode of Transport: Ambulatory - Complaint OB-Reason for Admission/Chief Complaint: Possible Onset of Labor Comment: Contractions started around 2/5 at 2030 and are increasing in intensity and frequency. Medical History - Information : 4 Para: 2 Term: 2 : 0 Abortions: Spontaneous or Elective: 1 Number of Living Children: 2 - Gestational Age Gestational Age by MARTI (wks/days): 38 Weeks and 0 Days - History Comment: On labetolol BID Review of Systems - Review of Systems Constitutional: No problems Breast: No problems ENT: No problems Cardiovascular: No problems Respiratory: No problems Gastrointestinal: No problems Genitourinary: No problems Musculoskeletal: No problems Neurological: Dizziness Skin: No problems Comment: Dizziness currently resolved, occurs on occasion Vital Signs - Temperature Temperature: 96.4 F Temperature Source: Temporal Artery Scan - Pulse Right Pulse Rate: 93 Pulse Assessment Method: Automatic Cuff - Respirations Respiratory Rate: 18 Oxygen Delivery Method: Room Air O2 Sat by Pulse Oximetry: 98 - Blood Pressure Right Arm Blood Pressure: 124/75 Blood Pressure Mean: 91 Blood Pressure Source: Automatic Cuff Medical Screen Scoring (Pre) - Cervical Exam Dilation: 1-3 cm = 1 Membranes: Intact - Uterine Contractions Frequency: > or = 36 weeks =2 Duration: > 40 seconds = 2 Intensity: N/A - Maternal Vital Signs Maternal Temperature: N/A Maternal Blood Pressure: Systolic >139 = 2 Signs of Preeclampsia: N/A Maternal Respirations: N/A - Maternal Trauma Maternal Trauma: N/A - Assessment - Baby A Baseline FHR: 145 Heart Rate - NICHD Category: Category I (Normal) = 0 NST: Reactive Position: N/A Station: N/A - Total Score - Baby A Total Score - Baby A: 7 - Total Score - Baby B Total Score - Baby B: 7 - Total Score - Baby C Total Score - Baby C: 7 - Level of Risk - Baby A Level of Risk - Baby A: Medium (6-9) - Level of Risk - Baby B Level of Risk - Baby B: Medium (6-9) - Level of Risk - Baby C Level of Risk - Baby C: Medium (6-9) Physician Notification (Pre) - Physician Notified Physician Notified Date: 05/06/20 Physician Notified Time: 01:33 New Order Received: Yes - Notification Comment Comment: RN spoke with Dr. Herr. Labs and UA reviewed, BP checks reviewed, updated on. cervical exam (no change). Pt to be bedrest with BR privileges until follow up with Dr. Mcknight on Friday. Pt to return with any worsening symptoms. Disposition - Disposition OB Disposition: Discharge to home Discharge Date: 05/06/20 Discharge Time: 01:50 I agree with the RN Medical Screening Exam: Yes Physician's MSE Comment: Patient was not seen or examined by myself Case reviewed; plan agreed upon as documented in EMR&OBIX.: Yes Diagnosis: FALSE LABOR BEFORE 37 COMPLETED WEEKS OF GEST, THIRD TRI
== END 2020-05-06 01:50 | disposition home or self-care (01) ==
LOC: FBPOP 23:25
PROVIDERS: ATTEND Obstetrics & Gynecology Obstetrics
DX: O47.03 False labor before 37 completed weeks of gestation, third trimester (principal); Z3A.38 38 weeks gestation of pregnancy
CPT/HCPCS: 59025; 82570; 84156; 82565; 83615; 84450; 84460; 84520; 84550; 85025; 85384; 85610; 85730; 81001; G0463; 99213

== ENCOUNTER 2020-05-10 08:45 | Outpatient (CLI) | payer OTHER ==
[2020-05-10 09:46] VITALS: BP 142/96; PULSE 85; RESP 16; TEMP 97
--- NOTE | 2020-05-13 10:04 | P.MSEPDOC ---
Presenting Problems - Arrival Data Date of Arrival on Unit: 05/10/20 Time of Arrival on Unit: 08:45 Mode of Transport: Ambulatory - Complaint OB-Reason for Admission/Chief Complaint: Possible Onset of Labor, Rule Out SROM Comment: Patient presents with possible rupture of membranes, but is unsure. States she felt a little "leaky" this am and had a small gush of "clear mucus" after going to the bathroom this am. States she is michaela every 5 minutes. Medical History - Information : 4 Para: 2 Term: 2 : 0 Abortions: Spontaneous or Elective: 1 Number of Living Children: 2 - Gestational Age Gestational Age by MARTI (wks/days): 38 Weeks and 4 Days - History Comment: PIH patient is on labetolol 100 mg BID, but has not taken her morning dose today. Review of Systems - Review of Systems Constitutional: No problems Breast: No problems ENT: No problems Cardiovascular: No problems Respiratory: No problems Gastrointestinal: No problems Genitourinary: No problems Musculoskeletal: No problems Neurological: No problems Skin: No problems Vital Signs - Temperature Temperature: 97.0 F Temperature Source: Temporal Artery Scan - Pulse Pulse Oximetery Pulse Rate: 85 Pulse Assessment Method: Automatic Cuff - Respirations Respiratory Rate: 16 Oxygen Delivery Method: Room Air - Blood Pressure Sitting Blood Pressure: 142/96 Blood Pressure Mean: 111 Blood Pressure Source: Automatic Cuff Medical Screen Scoring (Pre) - Cervical Exam Dilation: 1-3 cm = 1 Effacement: Exam Deferred Membranes: Intact - Uterine Contractions Frequency: > 5 minutes apart = 1 Duration: > 40 seconds = 2 Intensity: N/A - Maternal Vital Signs Maternal Temperature: N/A Maternal Blood Pressure: Systolic >139 = 2 Signs of Preeclampsia: Visual Disturbance = 1 Maternal Respirations: N/A - Maternal Trauma Maternal Trauma: N/A - Assessment - Baby A Baseline FHR: 135 Heart Rate - NICHD Category: Category I (Normal) = 0 NST: Reactive Position: N/A Station: N/A - Total Score - Baby A Total Score - Baby A: 7 - Total Score - Baby B Total Score - Baby B: 7 - Total Score - Baby C Total Score - Baby C: 7 - Level of Risk - Baby A Level of Risk - Baby A: Medium (6-9) - Level of Risk - Baby B Level of Risk - Baby B: Medium (6-9) - Level of Risk - Baby C Level of Risk - Baby C: Medium (6-9) Physician Notification (Pre) - Physician Notified Physician Notified Date: 05/10/20 Physician Notified Time: 09:31 New Order Received: Yes - Notification Comment Comment: Orders given to discharge patient home with instructions, patient to take her labetolol this am and patient to keep scheduled appt for induction for 05/15. Disposition - Disposition OB Disposition: Discharge to home, Written follow up instructions reviewed Discharge Date: 05/10/20 Discharge Time: 09:34 I agree with the RN Medical Screening Exam: Yes Physician's MSE Comment: I have neither seen nor examined this patient. Case reviewed; plan agreed upon as documented in EMR&OBIX.: Yes Diagnosis: RELATED CONDITIONS, UNSPECIFIED, THIRD TRIMESTER
== END 2020-05-10 09:34 | disposition home or self-care (01) ==
LOC: FBPOP 08:45
PROVIDERS: ATTEND Obstetrics & Gynecology
DX: O26.93 Pregnancy related conditions, unspecified, third trimester (principal); Z3A.38 38 weeks gestation of pregnancy
CPT/HCPCS: 59025; 84112; G0463; 99213

== ENCOUNTER 2020-05-15 06:00 | Inpatient (IN) | payer OTHER ==
[2020-05-15] MEDS ORDERED: METHYLERGONOVINE 0.2 MG/ML 1 ML AMP IM PRN (06:55)
[2020-05-15] MEDS ORDERED: OXYTOCIN 10 UNIT/ML 1 ML VIAL IM PRN (06:55)
[2020-05-15] MEDS ORDERED: CARBOPROST TROMETHAMINE 250 MCG/ML 1 ML AMP IM PRN (06:55)
[2020-05-15] MEDS ORDERED: LIDOCAINE 0.5% (PF) 5 MG/ML (50 ML SDV) SQ PRN (06:55)
[2020-05-15] MEDS ORDERED: TERBUTALINE 1 MG/ML VIAL SQ PRN (06:55)
[2020-05-15] MEDS ORDERED: OXYTOCIN 30 UNITS/500 ML NS 30 UNIT in SALINE 1 500ML.BAG IV SCH ×2 (07:00→18:15)
[2020-05-15] MEDS: LACTATED RINGERS 1,000 ML IV SCH ×3 (07:08→15:31)
[2020-05-15 09:45] LABS: Basophils % (A) 0 %; Eosinophils # (A) 0.1 k/uL (0-0.7); Eosinophils % (A) 1 %; HCT 35.3 % (34.0-46.0); HGB 11.8 gm/dL (11.4-16.0); Lymphocytes # (A) 1.3 k/uL (1.0-4.8); Lymphocytes % (A) 12 %; MCHC 33.5 g/dL (31.0-37.0); MCV 86.5 fL (80.0-100.0); Mean Platelet Volume 9.3; Monocytes # (A) 0.4 k/uL (0-1.0); Monocytes % (A) 4 %; Neutrophils # (A) 8.4 k/uL (1.3-7.7); Neutrophils % (A) 82 %; Platelet Count 219 k/uL (150-450); RBC 4.08 m/uL (3.80-5.40); WBC 10.3 k/uL (3.8-10.6)
[2020-05-15] MEDS ORDERED: BUTORPHANOL 1 MG/ML 1 ML VIAL IV PRN (09:58)
--- NOTE | 2020-05-15 10:03 | P.HPOB ---
History of Present Illness H&P Date: 05/15/20 Chief Complaint: 39-2/7 weeks, elective induction The patient a 30-year-old 6 para 2031 admitted at 39-2/7 weeks as established by last menstrual period and confirmed by 9 week ultrasound. She is admitted for elective induction of labor with all signs reassuring. Her has been essentially uncomplicated though she has had borderline high blood pressures. She has been monitored with routine testing which is been reassuring as well. Group B strep status is negative. Obstetrical history: 6 para 2031 with 2 term vaginal deliveries com plicated by gestational hypertension. She did have 3 early miscarriages not requiring D&C. Current statistics are listed in history present illness. EDC of 05/20/2020 was established by last menstrual period and confirmed by 9 week ultrasound. Laboratory workup demonstrates a blood type of O+ with a negative antibody screen. Rubella status is immune. Remainder of the laboratory workups within normal limits though her Pap did show ASCUS with positive high-risk HPV and will be followed up . Baseline induce hypertension labs were normal. Early Glucola as well as second trimester Glucola was also normal. Group B strep status is negative. Partner Marketing Intern history: Unremarkable with no history of any infections to include STDs. Review of Systems Review of systems is confined to history of present illness. Past Medical History Past Medical History: Osteoarthritis (OA) Additional Past Medical History / Comment(s): right ovarian cyst, prior dislocations to right shoulder x13 History of Any Multi-Drug Resistant Organisms: None Reported Past Surgical History: Orthopedic Surgery, Tonsillectomy Additional Past Surgical History / Comment(s): wisdom teeth, LT ROTATOR CUFF REPAIR, INSERTED AND REMOVAL IUD, COLONOSCOPY, "surgical " Past Anesthesia/Blood Transfusion Reactions: No Reported Reaction Past Psychological History: Anxiety Smoking Status: Never smoker Past Alcohol Use History: None Reported Past Drug Use History: None Reported - Past Family History Father Family Medical History: AFIB Mother Family Medical History: No Reported History Medications and Allergies Home Medications Medication Instructions Recorded Confirmed Type Labetalol [Trandate] 100 mg PO BID 05/04/20 05/15/20 History Pnv No.95/Ferrous Fum/Folic AC 1 each PO DAILY 05/05/20 05/15/20 History [ Multivitamin Tablet] Allergies Allergy/AdvReac Type Severity Reaction Status Date / Time No Known Allergies Allergy Verified 05/10/20 08:59 Exam Vital Signs Temp Pulse Resp BP Pulse Ox 05/15/20 07:24 97.1 F L 94 16 155/92 99 Intake and Output 05/14/20 05/15/20 05/15/20 22:59 06:59 14:59 Other: Weight 104.326 kg 104.326 kg In general, this is a well-developed, well-nourished white female in no acute distress. Her heart has a regular rhythm and rate without murmur. Her lungs are clear to auscultation bilaterally in all mayorga. Her abdomen is gravid, nondistended, has normal active bowel sounds, soft, nontender, and without any palpable masses aside from uterine fundus. Her extremities are without any cyanosis, clubbing, or significant edema and are nontender to palpation bilater ally. Digital cervical examination demonstrates her cervix to be 27 m dilated, 50 effaced, the vertex in presentation at -2-3 station. Artificial rupture of membranes is carried out demonstrating clear fluid. Results Result Diagrams: 05/15/20 09:24 Abnormal Lab Results - Last 24 Hours (Table) 05/15/20 Range/Units 09:24 Neutrophils # 8.4 H (1.3-7.7) k/uL Assessment and Plan (1) Term Current Visit: Yes Status: Acute Code(s): Z34.90 - ENCNTR FOR SUPRVSN OF NORMAL , UNSP, UNSP TRIMESTER SNOMED Code(s): 35163471 Plan: The patient is admitted for elective Pitocin induction. The risks of elective induction have been thoroughly discussed and she is understood and agreed to proceed. Pitocin has been started and she has undergone artificial rupture of membranes. She will have close maternal and surveillance and expectant management will be practiced. She is a good candidate for either IV or epidural analgesia, whichever she may choose.
[2020-05-15] MEDS ORDERED: ROPIVACAINE 100 MG, fentaNYL (PF) 200 MCG in SODIUM CHLORIDE 0.9% 76 ML EPIDURAL ONE (14:15)
[2020-05-15] MEDS ORDERED: diphenhydrAMINE 25 MG CAP PO PRN (18:05)
[2020-05-15] MEDS ORDERED: ACETAMINOPHEN TAB 325 MG TAB PO PRN (18:05)
[2020-05-15] MEDS ORDERED: ZOLPIDEM 5 MG TAB PO PRN (18:05)
[2020-05-15] MEDS ORDERED: HYDROcodone/APAP 5-325MG 1 EACH TAB PO PRN (18:05)
[2020-05-15] MEDS ORDERED: HYDROcodone/APAP 7.5-325MG 1 EACH TAB PO PRN (18:05)
[2020-05-15] MEDS ORDERED: BENZOCAINE/MENTHOL SPRAY 1 GM/SPRAY AEROSOL TOPICAL PRN (18:05)
[2020-05-15] MEDS ORDERED: diphenhydrAMINE 50 MG/ML 1 ML VIAL IVP PRN ×2 (18:05)
[2020-05-15] MEDS ORDERED: SIMETHICONE 80 MG CHEWABLE PO PRN (18:05)
[2020-05-15] MEDS ORDERED: diphenhydrAMINE 50 MG CAP PO PRN (18:05)
[2020-05-15] MEDS ORDERED: HYDROCORTISONE 2.5% RECTAL CREAM 30 GM TUBE RECTAL PRN (18:05)
[2020-05-15] MEDS ORDERED: LANOLIN CREAM 5 GM TUBE TOPICAL PRN (18:05)
--- NOTE | 2020-05-15 18:09 | P.PROBDLV ---
Vaginal Delivery Note - . Vaginal Delivery Note: The patient is a 30-year-old 6 para 2031 admitted at 39-2/7 weeks by good dating parameters. She is admitted for elective induction of labor with all signs reassuring. Her has been essentially uncomplicated though she has a history of high blood pressure and has been followed closely. testing has been reassuring throughout. On labor and delivery, she is admitted with category 1 heart rate tracing. She had Pitocin augmentation started and underwent artificial rupture of membranes for clear fluid. She made relatively slow progress through the latent phase of labor and, once in the active phase of labor, had an epidural catheter placed for analgesia. She then made fairly rapid progress to the active phase of labor to anterior lip at which time she was able to push once to reduce the anterior lip and become complete. She then pushed over the course of the next 2-3 contractions to a normal spontaneous vaginal delivery of a viable 7 lbs. 3 ounce baby girl with Apgars of 9 at 1 minute and 10 at 5 minutes delivered in the direct occiput anterior position. There was a nuchal cord 1 which was reduced following delivery of the . The placenta was delivered spontaneously, intact, and grossly normal with a grossly normal three-vessel cord inserted approximately 2 cm from the margin of the placental disc. There were no lacerations of the perineum, vagina, or cervix. There were no complications. All sponge, instrument, needle counts were correct. Estimated blood loss was approximately 200 mL. Both mother and are resting comfortably in recovery.
[2020-05-15] MEDS: SENNOSIDES-DOCUSATE SODIUM 1 EACH TAB PO SCH (20:50)
[2020-05-15] MEDS: IBUPROFEN 600 MG TAB PO PRN (21:57)
[2020-05-16] MEDS: IBUPROFEN 600 MG TAB PO PRN ×3 (04:45→18:37)
[2020-05-16 07:27] LABS: Basophils % (A) 0 %; Eosinophils # (A) 0.1 k/uL (0-0.7); Eosinophils % (A) 1 %; HCT 32.1 % (34.0-46.0); HGB 10.9 gm/dL (11.4-16.0); Lymphocytes # (A) 1.4 k/uL (1.0-4.8); Lymphocytes % (A) 13 %; MCH 29.5 pg (25.0-35.0); MCHC 33.8 g/dL (31.0-37.0); MCV 87.3 fL (80.0-100.0); Mean Platelet Volume 9.3; Monocytes # (A) 0.5 k/uL (0-1.0); Monocytes % (A) 5 %; Neutrophils % (A) 80 %; Platelet Count 202 k/uL (150-450); RBC 3.68 m/uL (3.80-5.40); RDW 14.8 % (11.5-15.5); WBC 10.1 k/uL (3.8-10.6)
--- NOTE | 2020-05-16 08:50 | P.DS ---
Providers Date of admission: 05/15/20 06:37 Expected date of discharge: 05/16/20 Attending physician: Baltazar Mcknight Primary care physician: Stated None - Discharge Diagnosis(es) (1) Term Current Visit: Yes Status: Acute (2) Normal spontaneous vaginal delivery Current Visit: Yes Status: Acute Hospital Course: The patient is a 30-year-old 6 para 2031 admitted at 39-2/7 weeks by good dating parameters. She is admitted for elective induction of labor with all signs reassuring. Her has been uncomplicated though she is on labetalol 4 chronic hypertension. testing for the has been reassuring. Group B strep status is negative. On labor and delivery, she had Pitocin augmentation started followed by artificial rupture of membranes for clear fluid. She made progress slowly through the latent phase of labor and had an epidural catheter placed around the onset of the active phase of labor. She then progressed fairly quickly to complete and pushed to a normal spontaneous vaginal delivery of a viable 7 lbs. 3 oz. baby girl with Apgars of 9 at 1 minute and 10 at 5 minutes. Her course was unremarkable vital signs being stable and her temperature was afebrile throughout. She was deemed stable for discharge on day #1 was discharged home to follow-up in the office in 6 weeks routinely. Discharge instructions included calling for any significantly increased bleeding or foul-smelling lochia, significantly i ncreased fever abdominal pain, perineal complaints, breast complaints, or anything else that concerned her. She is additionally instructed to have nothing in the vagina for at least 6 weeks time to include intercourse. She understood her instructions and agrees follow up as noted above. Discharge medications included only continue vitamins as she has opted to breast- feed. She was otherwise to use [id number] analgesic medications. Maternal blood type is O+ and rubella status is immune. Procedures: #1. Pitocin induction #2. Artificial rupture of membranes #3. Epidural analgesia #4. Normal spontaneous vaginal delivery Patient Condition at Discharge: Stable Plan - Discharge Summary New Discharge Prescriptions: No Action Labetalol [Trandate] 100 mg PO BID Pnv No.95/Ferrous Fum/Folic AC [ Multivitamin Tablet] 1 each PO DAILY Discharge Medication List Labetalol [Trandate] 100 mg PO BID 05/04/20 [History] Pnv No.95/Ferrous Fum/Folic AC [ Multivitamin Tablet] 1 each PO DAILY 05/05/20 [History] Follow up Appointment(s)/Referral(s): Baltazar Mcknight MD [STAFF PHYSICIAN] - 6 Weeks Discharge Disposition: HOME SELF-CARE
[2020-05-16] MEDS: SENNOSIDES-DOCUSATE SODIUM 1 EACH TAB PO SCH (10:01)
[2020-05-16 12:37] VITALS: TEMP 98
[2020-05-16 16:41] VITALS: BP 133/74; PULSE 87; RESP 14
== END 2020-05-16 18:49 | disposition home or self-care (01) | DRG 807 ==
LOC: 4FBP 06:37
PROVIDERS: ADMIT Obstetrics & Gynecology; ATTEND Obstetrics & Gynecology
PROC: 10E0XZZ Delivery of Products of Conception, External Approach (ICD-10-PCS; principal; 2020-05-15)
PROC: 3E033VJ Introduction of Other Hormone into Peripheral Vein, Percutaneous Approach (ICD-10-PCS; 2020-05-15)
PROC: 10907ZC Drainage of Amniotic Fluid, Therapeutic from Products of Conception, Via Natural or Artificial Opening (ICD-10-PCS; 2020-05-15)
PROC: 3E0R3BZ Introduction of Anesthetic Agent into Spinal Canal, Percutaneous Approach (ICD-10-PCS; 2020-05-15)
DX: O13.4 Gestational [pregnancy-induced] hypertension without significant proteinuria, complicating childbirth (principal); Z37.0 Single live birth; O99.344 Other mental disorders complicating childbirth; F41.9 Anxiety disorder, unspecified; M19.90 Unspecified osteoarthritis, unspecified site; O69.81X0 Labor and delivery complicated by cord around neck, without compression, not applicable or unspecified; R87.810 Cervical high risk human papillomavirus (HPV) DNA test positive; Z3A.39 39 weeks gestation of pregnancy; Z98.890 Other specified postprocedural states; Z79.899 Other long term (current) drug therapy; Z82.49 Family history of ischemic heart disease and other diseases of the circulatory system
CPT/HCPCS: 85025

== ENCOUNTER → 2023-06-16 | Outpatient (CLI) | payer OTHER ==
[2023-06-16 16:20] LABS: Basophils # (A) 0.03 X 10*3/uL (0.00-0.10); Basophils % (A) 0.5 %; Eosinophils # (A) 0.21 X 10*3/uL (0.04-0.35); Eosinophils % (A) 3.2 %; HCT 40.4 % (37.2-46.3); HGB 13.2 g/dL (12.0-15.0); Lymphocytes # (A) 1.95 X 10*3/uL (0.90-5.00); Lymphocytes % (A) 29.4 %; MCHC 32.7 g/dL (32.0-37.0); MCV 94.8 FL (80.0-97.0); Mean Platelet Volume 11.1 FL (9.5-12.2); Monocytes % (A) 4.5 %; NRBC Per 100 WBC 0 X 10*3/uL (0.00-0.01); Neutrophils # (A) 4.11 X 10*3/uL (1.80-7.70); Neutrophils % (A) 61.9 %; Platelet Count 283 X 10*3/uL (140-440); RBC 4.26 X 10*6/uL (4.10-5.20); RDW 12.2 % (11.5-14.5); WBC 6.63 X 10*3/uL (4.50-10.00)
== END | disposition home or self-care (01) ==
LOC: LABPAT 10:23
PROVIDERS: ATTEND Obstetrics & Gynecology
DX: Z30.2 Encounter for sterilization (principal); N92.1 Excessive and frequent menstruation with irregular cycle
CPT/HCPCS: 36415; 85025

== ENCOUNTER 2023-06-23 06:09 | Day surgery (SDC) | payer OTHER ==
[2023-06-17 15:27] VITALS: BMI 28.3
--- NOTE | 2023-06-20 01:22 | HP ---
HISTORY AND PHYSICAL DATE OF SURGERY: June 23, 2023. HISTORY OF PRESENT ILLNESS: The patient is a 33-year-old 6, para 3-0-3-3, who presents to the office with 2 complaints. Her first complaint is of a longstanding history of heavy and irregular cycles, for which she would like to have definitive intervention, specifically has requested endometrial ablation. She additionally has completed childbearing and is interested in permanent contraception and requested tubal ligation. After discussion of the options for tubal ligation, she has requested Filshie clips. She is aware of other long-term and reversible methods, but prefers to have the permanent control in place. PAST MEDICAL HISTORY: Significant for reported asthma. She additionally has rotator cuff syndrome of 1 of her shoulders. PAST SURGICAL HISTORY: Laparoscopic drainage of an ovarian cyst in 2013, as well as medical interruption of for conjoined twins in 2012. She had a rotator cuff repair in 2008 and she had wisdom teeth extraction. She denies any history of anesthetic concerns. OBSTETRICAL HISTORY: 7, para 3-0-3-3 with 3 term vaginal deliveries, 2 early miscarriages, not requiring D and C and then 1 elective interruption of for conjoined twins. Method of contraception at this time has been control pills after the recent of her last child. GYNECOLOGIC HISTORY: Unremarkable. No history of any infections to include STDs. FAMILY HISTORY: Noncontributory. SOCIAL HISTORY: The patient is single, but has a longstanding partner. She is a nonsmoker and denies any significant alcohol or any other social concerns. CURRENT MEDICATIONS: Include, 1. Claritin as needed. 2. Norethindrone mini pill daily for contraception. ALLERGIES: Only seasonal in nature with no known drug allergies. REVIEW OF SYSTEMS: Confined to history of present illness. PHYSICAL EXAMINATION: VITAL SIGNS: Stable. The patient is afebrile. GENERAL: This is a well-developed, well-nourished white female, in no acute distress. HEART: Has a regular rhythm and rate without murmur. LUNGS: Clear to auscultation bilaterally in all mayorga. ABDOMEN: Nondistended, has normoactive bowel sounds, soft, nontender, without any palpable masses, hepatosplenomegaly, or hernias. EXTREMITIES: Without any cyanosis, clubbing, or edema. Nontender to palpation bilaterally. PELVIC: Demonstrates normal external genitalia and BUS with normal vaginal mucosa and cervix. There is no cervical motion tenderness. Uterus is approximately 4 to 5 weeks in size, anteverted, mobile, nontender, normal in shape. The adnexa are normal and nontender without mass bilaterally. Endometrial biopsy done during the pelvic examination demonstrated a sounding length of 8 cm with normal pathological findings. ASSESSMENT AND PLAN: 1. Undesired fertility. 2. Family planning. The patient has requested to undergo laparoscopic bilateral tubal occlusion with Filshie clips as well as diagnostic hysteroscopy with NovaSure endometrial ablation. Risks and complications of these procedures have been thoroughly discussed including risk of bleeding, bleeding requiring transfusion, infection, injury to local structures. This includes the bowel, bladder, and ureters for the laparoscopic portion as well as potential uterine rupture, subsequent Asherman syndrome and hematometra for the ablation. She has understood all this and has agreed to proceed. As noted above, we are scheduled for the morning of 06/23/2023 for the procedures as outlined above. MMODL / IJN: [id number] /
[~2023-06-23 06:09] MED LIST: Pre Op ABX Message 1 EACH MISC MISCELLANE ONE; SCOPOLAMINE 1 MG/72 HR PATCH TRANSDERM ONE
[2023-06-23] MEDS: LACTATED RINGERS 1,000 ML IV SCH (06:47)
[2023-06-23] MEDS: DEXAMETHASONE SOD PHOSPHATE 4 MG/ML 1 ML VIAL IV ONE (07:00)
[2023-06-23] MEDS: FAMOTIDINE 20 MG/2 ML VIAL IVP ONE (07:00)
[2023-06-23] MEDS: ONDANSETRON 4 MG/2 ML VIAL IVP ONE (07:00)
[2023-06-23] MEDS ORDERED: MIDAZOLAM 2 MG/2 ML VIAL IV PRN (07:00)
[2023-06-23] MEDS ORDERED: PROPOFOL 10 MG/ML 20 ML VIAL IV ONE (07:39)
[2023-06-23] MEDS ORDERED: LIDOCAINE 1% INJ 10MG/ML (20 ML MDV) ONE (07:39)
[2023-06-23] MEDS ORDERED: MIDAZOLAM 2 MG/2 ML VIAL ONE (07:39)
[2023-06-23] MEDS: BUPIVACAINE (PF) 0.5% 30 ML VIAL SQ ONE ×2 (07:39→08:22)
[2023-06-23] MEDS ORDERED: SUCCINYLCHOLINE CHLORIDE 200 MG/10 ML VIAL IV ONE (07:39)
[2023-06-23] MEDS ORDERED: KETOROLAC 15 MG/ML 1 ML VIAL ONE (07:39)
[2023-06-23] MEDS ORDERED: fentaNYL (PF) 50 MCG/ML 2 ML AMP ONE (07:39)
[2023-06-23] MEDS ORDERED: SIMETHICONE 80 MG CHEWABLE PO PRN (08:44)
[2023-06-23] MEDS ORDERED: METOCLOPRAMIDE 5 MG/ML 2 ML VIAL IVP PRN (08:44)
[2023-06-23] MEDS ORDERED: diphenhydrAMINE 50 MG/ML 1 ML VIAL IVP PRN (08:44)
[2023-06-23] MEDS ORDERED: IBUPROFEN 600 MG TAB PO PRN (08:44)
[2023-06-23] MEDS ORDERED: KETOROLAC 15 MG/ML 1 ML VIAL IVP PRN (08:44)
[2023-06-23] MEDS ORDERED: ONDANSETRON 4 MG/2 ML VIAL IVP PRN (08:44)
[2023-06-23] MEDS ORDERED: Acetaminophen-Codeine 300-30mg TAB PO PRN (08:44)
[2023-06-23] MEDS ORDERED: LACTATED RINGERS 1,000 ML IV SCH (08:45)
--- NOTE | 2023-06-23 08:53 | P.OP ---
Date of Procedure: 06/23/23 Preoperative Diagnosis: #1. Menometrorrhagia #2. Undesired fertility Postoperative Diagnosis: Same Procedure(s) Performed: #1. Laparoscopic bilateral salpingectomy #2. Diagnostic hysteroscopy #3. NovaSure endometrial ablation Anesthesia: VLADISLAV Surgeon: Baltazar Mcknight Estimated Blood Loss (ml): 5 IV fluids (ml): 600 Urine output (ml): 30 Pathology: other (Bilateral fallopian tubes) Condition: stable Disposition: PACU Operative Findings: Preoperative pelvic examination demonstrated a roughly 4 to 5-week anteverted mobile normal shaped uterus with normal adnexa bilaterally. Intraoperatively, the uterus, tubes, and ovaries were entirely normal to inspection. There was no evidence of any pathology in the pelvis to include endometriosis. The small and large bowel as well as the appendix, liver, gallbladder, and diaphragm were normal to inspection. The bilateral fallopian tubes were taken to approximately a half a centimeter from the cornual exit from the uterus. Using the hysteroscope, the bilateral tubal ostia were seen and there is no evidence of pathology within the uterus. There was some shaggy endometrium present. The settings for the NovaSure to over a length of 5.5 cm, a width of 3.9 cm for a total power of 118 W. After a total run time of 129 seconds, the patient read "procedure complete.". The postprocedural result appeared to be excellent. The patient is a potential candidate for vaginal hysterectomy should become necessary in the future. Description of Procedure: The patient was prepped and draped in usual fashion after general tracheal anesthesia was administered by the anesthesiologist. A weighted speculum was placed in the bladder drained of approximately 30 cc of clear sonali urine. The cervix was grasped with a single-tooth tenaculum allowing an acorn can be affixed. Attention was turned to the abdomen where a 5 mm incision was made in the transverse plane just beneath the umbilicus through pre-existing scar line insertion of a 5 mm optical trocar under direct visualization without difficulty. A pneumoperitoneum was instilled. Site was selected in the left lower quadrant approximately 4 cm below the optical trocar in 10 to 12 cm lateral where a 5 mm incision was made the transverse plane and again allowing insertion of a 5 mm optical port under direct visualization without difficulty. A similar and mirroring port was placed in the right lower quadrant. Trendelenburg positioning was utilized and the findings were as noted above with an entirely normal pelvis and abdominal findings in general. The left loping tube was grasped at its fimbriated end from the contralateral side using a grasper allowing a LigaSure device to be used through the other port to remove the fallopian tube just underneath its base to the cornu where it was divided. The tube was then removed through the secondary port and sent for pathological diagnoses to be included with its opposite partner. Similar operation was carried out on the right side without difficulty. Hemostasis appeared to be excellent. All instrumentation was removed and the pneumoperitoneum was evacuated through the 3 ports which were then removed as well. The incisions were closed with interrupted subcuticular stitches of 4-0 Vicryl and then the 3 incisions infused with a total of 10 cc of half percent Marcaine without epinephrine, equally divided between the 3 incisions. Steri-Strips were placed with Mastisol. Attention was returned to the vagina where the weighted speculum was replaced and the acorn cannula removed. The uterus was sounded to 9 cm with a cervical length of 3.5 cm for a total uterine length of 5.5 cm. Serial dilation was carried out to admit the diagnostic hysteroscope which was placed into the cavity and the cavity distended with saline. The findings were normal as noted above. After adequate hysteroscopy been carried out, the scope was set aside and the NovaSure tool placed inside the endometrial cavity, opened, and seated well. The settings as noted above were for a length of 5.5 cm, a width of 3.9 cm, for a total power of 118 W. The cavity check was attempted and passed without difficulty. The tool was enabled and the run was started. After total run time of 129 seconds, the base unit read "procedure completed." The 2 was closed, removed, and discarded. The diagnostic scope was replaced and the result appeared to be excellent. All instrumentation was then removed. There was no ongoing bleeding from either the cervix or from the tenaculum sites. The patient is a potential candidate for vaginal hysterectomy should be necessary. All sponge, instrument, and needle counts were correct. There were no complications. Estimated blood loss for the case was 5 cc or less. The patient tolerated the procedure well and proceeded to the recovery room in stable condition.
[2023-06-23] MEDS: HYDROmorphone 0.5 MG/0.5 ML SYRINGE IVP PRN (08:57)
[2023-06-23 09:05] VITALS: TEMP 97.6
[2023-06-23] MEDS: LACTATED RINGERS 1,000 ML IV ONE (09:30)
[2023-06-23 09:41] VITALS: RESP 16
[2023-06-23] MEDS: Acetaminophen-Codeine 300-30mg TAB PO PRN (09:48)
[2023-06-23 10:19] VITALS: BP 148/84; PULSE 68
[2023-06-24] MEDS ORDERED: ACETAMINOPHEN TAB 325 MG TAB PO PRN (08:45)
== END 2023-06-23 10:35 | disposition home or self-care (01) ==
LOC: OR 06:09
PROVIDERS: ATTEND Obstetrics & Gynecology
DX: N92.1 Excessive and frequent menstruation with irregular cycle (principal); Z30.2 Encounter for sterilization; J45.909 Unspecified asthma, uncomplicated; M19.90 Unspecified osteoarthritis, unspecified site; F41.9 Anxiety disorder, unspecified; Z90.89 Acquired absence of other organs; Z98.890 Other specified postprocedural states; Z79.899 Other long term (current) drug therapy
CPT/HCPCS: 81025; 58661; 58563; J2250; J0330; J1100; J2405; J2001; J3010; J3490; J1885; J2704; J1170; J0665; 88302